=== PATIENT | female | born 1965 | race Caucasian/White ===

== ENCOUNTER 2023-09-20 06:07 | Day surgery (SDC) | payer BC ==
[2023-09-16 10:59] VITALS: BMI 15.6
[2023-09-20] MEDS ORDERED: ERYTHROMYCIN 0.5% OPHTHALMIC OINTMENT 3.5 GM TUBE ONE (07:15)
[2023-09-20] MEDS ORDERED: ceFAZolin SODIUM 1 GM VIAL ONE ×2 (07:15→07:29)
[2023-09-20] MEDS ORDERED: TETRACAINE 0.5% OPHTH SOLN 2 ML BOTTLE ONE (07:16)
[2023-09-20] MEDS ORDERED: POVIDONE-IODINE 5% OPHTHALMIC PREP 30 ML SOLUTION ONE (07:16)
[2023-09-20] MEDS ORDERED: BUPIVACAINE HCL/PF 0.5% (5MG/ML) 10 ML VIAL ONE (07:16)
[2023-09-20] MEDS ORDERED: LIDOCAINE 1%/EPI 1:100000 (20 ML MULTI DOSE VIAL) ONE (07:16)
[2023-09-20] MEDS ORDERED: DEXAMETHASONE SOD PHOSPHATE 4 MG/1 ML VIAL ONE (07:29)
[2023-09-20] MEDS ORDERED: ONDANSETRON 4 MG/2 ML VIAL ONE (07:29)
[2023-09-20] MEDS ORDERED: MIDAZOLAM HCL 2 MG/2 ML SINGLE DOSE VIAL ONE (07:29)
[2023-09-20] MEDS ORDERED: PROPOFOL 40 ML ONE (07:29)
[2023-09-20] MEDS ORDERED: ONDANSETRON 4 MG/2 ML VIAL IVPUSH PRN (09:22)
[2023-09-20] MEDS ORDERED: oxyCODONE HCL 5 MG TABLET PO PRN (09:22)
[2023-09-20] MEDS ORDERED: LACTATED RINGERS SOLUTION 1,000 ML IV SCH (09:30)
[2023-09-20 10:00] VITALS: TEMP 97.4
[2023-09-20 10:47] VITALS: BP 108/60; PULSE 58; RESP 18
== END 2023-09-20 10:45 | disposition home or self-care (01) ==
LOC: FASU 06:07
PROVIDERS: ATTEND Ophthalmology
PROC: 0KX10ZZ Transfer Facial Muscle, Open Approach (ICD-10-PCS; 2023-09-20)
PROC: 08SN0ZZ Reposition Right Upper Eyelid, Open Approach (ICD-10-PCS; principal; 2023-09-20 08:07)
DX: C44.1121 Basal cell carcinoma of skin of right upper eyelid, including canthus (principal)
CPT/HCPCS: 94760